=== PATIENT | female | born 1965 | race American Indian/Alaskan Native ===

== ENCOUNTER 2016-10-02 15:41 | Emergency (ER) | payer MEDICAID ==
[2016-10-02 15:55] VITALS: BP 138/99; PULSE 74; RESP 16; TEMP 98.4; O2SAT 98
== END 2016-10-02 16:40 | disposition left against medical advice (07) ==
LOC: H.ER 15:41
DX: Z02.89 Encounter for other administrative examinations (principal); M79.89 Other specified soft tissue disorders

== ENCOUNTER 2016-10-03 01:35 | Emergency (ER) | payer MEDICAID ==
[2016-10-03 02:09] VITALS: BP 154/104; PULSE 95; RESP 18; TEMP 98; O2SAT 100
--- NOTE | 2016-10-03 03:10 | ED PDOC ---
Lower Extremity Pain/Injury Time Seen by Provider: 10/03/16 02:13 Chief Complaint (Nursing): Lower Extremity Problem/Injury Chief Complaint (Provider): knee pain History Per: Patient History/Exam Limitations: no limitations Onset/Duration Of Symptoms: Days (1 week) Current Symptoms Are (Timing): Still Present Additional History Per: Patient Additional Complaint(s): 51 y/o female presents with atraumatic right knee pain/swelling x 1 week. Patient notes pain to travel down behind right leg. Pain worse with weight bearing, movement. Patient has applied dressing ot knee with improvement of symptoms. Denies fever, numbness/weakness right lower extremity, recent travel. Past Medical History Reviewed: Historical Data, Nursing Documentation, Vital Signs Vital Signs: Last Vital Signs Temp 98 F 10/03/16 02:07 Pulse 95 H 10/03/16 02:07 Resp 18 10/03/16 02:07 BP 154/104 H 10/03/16 02:07 Pulse Ox 100 10/03/16 02:07 - Medical History PMH: Asthma, HIV, HTN - Surgical History Surgical History: No Surg Hx - Family History Family History: States: Unknown Family Hx - Social History Current smoker - smoking cessation education provided: Yes Alcohol: None Drugs: Denies - Home Medications Home Medications: Ambulatory Orders Medication Instructions Recorded Methadone HCl [Methadose] 01/13/16 Montelukast [Singulair] 01/13/16 amLODIPine [Norvasc] 01/13/16 cloNIDine [Catapres] 01/13/16 Ibuprofen [Motrin Tab] 1 tab PO Q6 PRN #15 tab 10/03/16 - Allergies Allergies/Adverse Reactions: Allergies Allergy/AdvReac Type Severity Reaction Status Date / Time No Known Allergies Allergy Verified 10/02/16 15:52 Review of Systems ROS Statement: Except As Marked, All Systems Reviewed And Found Negative Musculoskeletal: Positive for: Leg Pain (right knee) Physical Exam - Reviewed Nursing Documentation Reviewed: Yes Vital Signs Reviewed: Yes - Physical Exam Appears: Positive for: Well, Non-toxic, No Acute Distress Head Exam: Positive for: ATRAUMATIC, NORMAL INSPECTION, NORMOCEPHALIC Skin: Positive for: Normal Color Cardiovascular/Chest: Positive for: Regular Rate, Rhythm Respiratory: Positive for: Normal Breath Sounds Extremity: Positive for: Normal ROM, Tenderness (lateral right knee. Superior to right patella. ), Calf Tenderness (right). Negative for: Swelling - Laboratory Results Result Diagrams: 10/03/16 04:41 10/03/16 04:41 - ECG O2 Sat by Pulse Oximetry: 100 - Other Rad xray right knee X-Ray: Viewed By Me X-Ray Interpretation: no acute findings - Progress ED Course And Treament: xray, ibuprofen Patient provides financial underwriter with paper from [facility]D to rule out DVT; states she was seen there yesterday and sent to ED but patient could not wait to be seen so she left and came back. labs ordered Disposition - Clinical Impression Clinical Impression: Knee pain, Leg pain - Patient ED Disposition Is Patient to be Admitted: Transfer of Care - Disposition Disposition: Transfer of Care Disposition Time: 06:07 Condition: STABLE Prescriptions: Ibuprofen [Motrin Tab] 1 tab PO Q6 PRN #15 tab PRN Reason: Pain, Moderate (4-7) Instructions: Knee Pain (ED), Leg Pain (ED) Patient Signed Over To: Sky Doe Handoff Comments: pending D-Dimer
[2016-10-03 04:48] LABS: BASO % 0.4 % (0.0-2.0); EOS % 0.9 % (0.0-4.0); HEMATOCRIT 41.1 % (34.0-47.0); LYMPH # 2.2 K/uL (1.0-4.3); LYMPH % 47.3 % (20.0-40.0); MEAN CELL VOLUME 72.9 fl (81.0-99.0); MEAN CORPUSCULAR HGB CONC 30.2 g/dL (33.0-37.0); MEAN PLATELET VOLUME 9.2 fl (7.2-11.7); MONO # 0.2 K/uL (0.0-0.8); MONO % 4.5 % (0.0-10.0); NEUT # 2.2 K/uL (1.8-7.0); NEUT % 46.9 % (50.0-75.0); NRBC % 0.1 % (0.0-0.0); WHITE BLOOD COUNT 4.7 K/uL (4.8-10.8)
[2016-10-03 04:53] LABS: ALB/GLOB RATIO 0.9 (1.0-2.1); ALKALINE PHOSPHATASE 90 U/L (38-126); ALT/SGPT 34 U/L (9-52); AST/SGOT 45 U/L (14-36); BILIRUBIN,TOTAL 0.7 mg/dl (0.2-1.3); BLOOD UREA NITROGEN 17 mg/dl (7-17); CARBON DIOXIDE 27 mmol/L (22-30); CHLORIDE 104 mmol/L (98-107); GFR AFRICAN-AMERICAN > 60; GLUCOSE,RANDOM 97 mg/dL (65-105); POTASSIUM 3.7 MMOL/L (3.6-5.0); SODIUM 145 mmol/l (132-148); TOTAL PROTEIN 8.7 G/DL (6.3-8.2)
[2016-10-03 06:07] LABS: PARTIAL THROMBOPLASTIN TIME 29.7 SECONDS (23.3-32.5)
--- NOTE | 2016-10-03 06:11 | ED PDOC ---
- Laboratory Results Result Diagrams: 10/03/16 04:41 10/03/16 04:41 - ECG O2 Sat by Pulse Oximetry: 100 Medical Decision Making Medical Decision Making: Patient s/o from Leonor Ortiz PA-C at 0600 pending d-dimer. 0630: Patient walked out of ED prior to results. Scribe Attestation: Documented by Jose Luis Moses acting as a scribe for Sky Doe MD. Provider Scribe Attestation: All medical record entries made by the Scribe were at my direction and personally dictated by me. I have reviewed the chart and agree that the record accurately reflects my personal performance of the history, physical exam, medical decision making, and the department course for this patient. I have also personally directed, reviewed, and agree with the discharge instructions and disposition. Disposition - Clinical Impression Clinical Impression: Knee pain, Leg pain - POA Present On Arrival: None - Disposition Disposition: Left W/O Treatment (left before treatment completed) Disposition Time: 06:30 Condition: UNKNOWN Prescriptions: Ibuprofen [Motrin Tab] 1 tab PO Q6 PRN #15 tab PRN Reason: Pain, Moderate (4-7) Instructions: Knee Pain (ED), Leg Pain (ED)
--- NOTE | 2016-10-03 15:49 | RAD ---
PROCEDURE: Right Knee Radiographs. HISTORY: atraumatic pain, swelling COMPARISON: None. FINDINGS: BONES: Normal. No fracture. JOINTS: Severe osteoarthritic changes. JOINT EFFUSION: Possible joint effusion. OTHER FINDINGS: None. IMPRESSION: No evidence of acute fracture or dislocation. Severe osteoarthritic changes. Suspicious for small suprapatellar joint effusion.
== END 2016-10-03 07:10 | disposition left against medical advice (07) ==
LOC: H.ER 01:35
DX: M25.461 Effusion, right knee (principal); M79.601 Pain in right arm; F17.200 Nicotine dependence, unspecified, uncomplicated; I10 Essential (primary) hypertension; J45.909 Unspecified asthma, uncomplicated

== ENCOUNTER 2016-12-20 22:58 | Emergency (ER) | payer MEDICAID ==
[2016-12-20 23:31] VITALS: BP 182/114; PULSE 94; RESP 18; TEMP 98.5; O2SAT 98
--- NOTE | 2016-12-21 00:30 | ED PDOC ---
Lower Extremity Pain/Injury Time Seen by Provider: 12/20/16 23:44 Chief Complaint (Nursing): Lower Extremity Problem/Injury Chief Complaint (Provider): Leg pain Additional Complaint(s): Patient is a 50 y/o female, PMH of HIV, Asthma and HTN, states she was sent for US/doppler for leg pain 2 months ago due to initial complaints of intermittent Right inner thigh pain. Pt reports that she was unable to have the test done 2 months ago, she did not have the time. Patient has rx for transvaginal us and lab tests from 11/19 as well. At this time patient offers no complaints. Past Medical History Reviewed: Nursing Documentation, Vital Signs Vital Signs: Last Vital Signs Temp 98.5 F 12/20/16 23:21 Pulse 94 H 12/20/16 23:21 Resp 18 12/20/16 23:21 BP 182/114 H 12/20/16 23:21 Pulse Ox 98 12/20/16 23:21 - Medical History PMH: Asthma, HIV, HTN - Family History Family History: States: Unknown Family Hx - Social History Current smoker - smoking cessation education provided: No Alcohol: None Drugs: Denies - Home Medications Home Medications: Ambulatory Orders Medication Instructions Recorded Methadone HCl [Methadose] 01/13/16 Montelukast [Singulair] 01/13/16 amLODIPine [Norvasc] 01/13/16 cloNIDine [Catapres] 01/13/16 Ibuprofen [Motrin Tab] 1 tab PO Q6 PRN #15 tab 10/03/16 - Allergies Allergies/Adverse Reactions: Allergies Allergy/AdvReac Type Severity Reaction Status Date / Time No Known Allergies Allergy Verified 10/02/16 15:52 Review of Systems ROS Statement: Except As Marked, All Systems Reviewed And Found Negative Physical Exam - Reviewed Nursing Documentation Reviewed: Yes Vital Signs Reviewed: Yes - Physical Exam Appears: Positive for: Well, Non-toxic, No Acute Distress Head Exam: Positive for: ATRAUMATIC, NORMAL INSPECTION, NORMOCEPHALIC Skin: Positive for: Normal Color, Warm, DRY Eye Exam: Positive for: EOMI, Normal appearance, PERRL ENT: Positive for: Normal ENT Inspection Neck: Positive for: Normal, Painless ROM Cardiovascular/Chest: Positive for: Regular Rate, Rhythm Respiratory: Positive for: CNT, Normal Breath Sounds Gastrointestinal/Abdominal: Positive for: Normal Exam, Bowel Sounds, Soft Back: Positive for: Normal Inspection Extremity: Positive for: Normal ROM Neurologic/Psych: Positive for: Alert, Oriented - ECG O2 Sat by Pulse Oximetry: 98 Medical Decision Making Medical Decision Making: Pt made aware [facility] US is not in house at this time and will need to be called in. Pt unwilling to wait for US and did not want to wait for results either. Pt was hoping to get lab draw and US and go home, follow up wiht her PMD. Pt educated on ED visit vs. outpt visit and was advised to call lab and scheduling Dept in order to make appointments for outpt studies to be complete. Disposition - Clinical Impression Clinical Impression: Leg pain - Patient ED Disposition Is Patient to be Admitted: No - Disposition Disposition: Routine/Home Disposition Time: 00:34 Condition: STABLE Instructions: Leg Pain (ED)
== END 2016-12-21 00:18 | disposition home or self-care (01) ==
LOC: H.ER 22:58
DX: M79.606 Pain in leg, unspecified (principal); I10 Essential (primary) hypertension; B20 Human immunodeficiency virus [HIV] disease